=== PATIENT | female | born 2005 | race Two or more races ===

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

== ENCOUNTER 2025-01-23 18:38 | Emergency (ER) | payer MEDICAID ==
[~2025-01-23] VITALS: Ht 157.5 cm; Wt 79.0 kg
--- NOTE | 2025-01-23 19:09 | ED.PDOC ---
History of Present Illness HPI Comments 19 year old female presents to ER with complaints of flu-like symptoms x 2 days. Patient reports that she started experiencing a sore throat with intermittent frontal headache 2 days ago with associated n/v/d that started this morning. Denies any pain and denies use of medications for current symptoms. Patient reports that her mom's been experiencing similar symptoms and presents to ER ambulatory, with steady gait, in no distress. Denies fever, cough, dizziness, chest pain, abdominal pain, bloody diarrhea, changes in urination or any further symptoms/complaints Time Seen by MD: 18:41 Primary Care Provider: UNKNOWN Reviewed Notes: Nurses Notes, Medications, Allergies Information Source: Patient Mode of Arrival: Ambulatory Past Medical History PAST MEDICAL HISTORY: Denies Surgical History: Denies all surgeries UX DESIGNER History: No Pertinent UX DESIGNER History Family History Family History: Unknown Social History Smoker: Non-Smoker Alcohol: Denies ETOH Use Drugs: Marijuana Lives In: Home Constitutional: No Symptoms Reported EENTM: See HPI Respiratory: No Symptoms Reported Gastrointestinal: See HPI Genitourinary: No Symptoms Reported Neurological: No Symptoms Reported Musculoskeletal: No Symptoms Reported Integumentary: No Symptoms Reported Allergic/Immunocompromised: others (denies) Hematologic/Lymphatic: No Symptoms Reported Endocrine: No Symptoms Reported Psychiatric: No symptoms Reported Physical Exam General Appearance: No Apparent Distress HEENT: Normal ENT Inspection, PERRL/EOMI, Pharynx Normal, TMs Normal Neck: Full Range of Motion, Non-Tender, Normal Respiratory: Chest Non-Tender, Lungs Clear, No Accessory Muscle Use, No Respiratory Distress, Normal Breath Sounds Cardiovascular: No Murmur, No Gallop, Regular Rate/Rhythm Breast Exam: Deferred Gastrointestinal: Non Tender, No Pulsatile Mass, Soft Genitalia: Deferred Pelvic: Deferred Rectal: Deferred Extremities: Normal capillary refill, Normal range of motion Neurologic: Alert, No Motor Deficits, Normal Affect, Normal Mood, No Sensory Deficits Cerebellar Function: Normal Reflexes: Normal Skin: Dry, Normal Color, Warm Lymphatic: No Adenopathy Was a procedure done? Was a procedure done?: No Sedation Sedation?: No Fever Differential Dx Differential Diagnosis: Pneumonia, UTI, Pharyngitis, Other (COVID-19, Influenza) X-Ray, Labs, Meds, VS Vital Signs Date Time Temp Pulse Resp B/P (MAP) Pulse Ox O2 Delivery O2 Flow Rate FiO2 01/23/25 18:58 97.8 104 18 128/88 (101) 97 97.8 Lab Test 01/23/25 18:57 Range/Units Influenza Type A Antigen Negative Negative Influenza Type B Antigen Negative Negative SARS-CoV-2 Antigen (Rapid) Negative NEGATIVE Swab results reviewed- negative Urine dip reviewed-urine leukocytes negative, urine nitrites negative, urine blood 3+, urine color/appearance - straw/clear Zofran 4 mg p.o. ordered Patient had improvement in symptoms, tolerating p.o. intake well and in no distress prior to discharge Diet education discussed Advised to follow up with PCP in 1-2 days Patient verbalized understanding and agreeable with current plan of care Advised to return to ER immediately if symptoms worsen Time of 1ST Reevaluation: 19:02 Reevaluation 1ST: N/A Patient Education/Counseling: Diagnosis, Treatment, Prognosis, Need For Follow Up Family Education/Counseling: No Family Present SEPSIS Sepsis Screen Physician Orders Urine Dip (01/23/25 ) Vital Signs Date Time Temp Pulse Resp B/P (MAP) Pulse Ox O2 Delivery O2 Flow Rate FiO2 01/23/25 18:58 97.8 104 18 128/88 (101) 97 97.8 Departure 1 Departure Time of Disposition: 20:04 Impression: Primary Impression: Viral gastroenteritis Disposition: 01 HOME / SELF CARE / HOMELESS Condition: Stable Discharged With: Self Critical Care Note Critical Care Time?: No Stability Stability form required: No Heart Score Heart Score: Heart Score Response (Comments) Value History N/A 0 EKG N/A 0 Age N/A 0 Risk Factors N/A 0 Troponin N/A 0 Total 0 LONNY WALLS Jan 23, 2025 19:09
[2025-01-23 19:33] LABS: COVID19 ANTIGEN SOFIA FIA NEGATIVE (NEGATIVE)
[2025-01-23] MEDS: ONDANSETRON ODT 4 MG TAB PO ONE (22:40)
[2025-01-23 22:45] VITALS: BP 132/94; PULSE 91; RESP 18; TEMP 97.8; O2SAT 99
== END 2025-01-23 22:56 | disposition home or self-care (01) ==
LOC: ER 18:38
DX: A08.4 Viral intestinal infection, unspecified (principal); F12.90 Cannabis use, unspecified, uncomplicated; Z20.822 Contact with and (suspected) exposure to COVID-19; Z79.899 Other long term (current) drug therapy
CPT/HCPCS: 36415; 87426; 87804; 99283; Q0162